=== PATIENT | male | born 1975 | race Caucasian/White ===

== ENCOUNTER → 2017-08-29 | Outpatient (CLI) | payer OTHER ==
--- NOTE | 2017-08-29 11:35 | Diagnostic Imaging Report ---
EXAMINATION: Three views of the left shoulder. INDICATION: Left shoulder pain. FINDINGS: No fracture, dislocation, or radiopaque foreign body. The alignment of the glenohumeral and acromioclavicular joints appear unremarkable. IMPRESSION: Unremarkable exam. Dictated by: Dictated on workstation # [id number]
== END ==
LOC: RAD 10:33
PROVIDERS: ATTEND Nurse Practitioner Family
DX: M25.512 Pain in left shoulder (principal)
CPT/HCPCS: 73030

== ENCOUNTER → 2019-03-03 | Outpatient (CLI) | payer OTHER ==
--- NOTE | 2019-03-03 20:02 | Diagnostic Imaging Report ---
INDICATION: Left knee pain 3 views of the left knee show no fracture, dislocation or other acute abnormalities. IMPRESSION: Negative left knee Dictated by: Dictated on workstation # [id number]
== END ==
LOC: RAD 19:40
PROVIDERS: ATTEND Nurse Practitioner Family
DX: M25.562 Pain in left knee (principal)
CPT/HCPCS: 73562

== ENCOUNTER → 2019-03-16 | Outpatient (CLI) | payer OTHER ==
--- NOTE | 2019-03-16 15:38 | Diagnostic Imaging Report ---
PROCEDURE: MRI left joint lower extremity without contrast. TECHNIQUE: Multiplanar, multisequence non contrast-enhanced MRI of the left lower extremity was accomplished. INDICATION: Left knee pain. FINDINGS: The anterior cruciate and posterior cruciate ligaments are intact. Both the superficial and deep components of the medial collateral ligament are intact. The distal insertion of the biceps femoris and fibular collateral is not included on this exam on the coronal images. They however appear to be intact. The iliotibial band is intact. The popliteus tendon is intact. There is an oblique tear of the posterior horn of medial meniscus extending to the inferior articular margin. Anterior horn of medial meniscus is intact. Lateral meniscus is normal in signal intensity and morphology. Quadriceps tendon and patellar tendons are intact. There is very small knee joint effusion. The articular cartilage is well maintained in all three knee joint compartments. IMPRESSION: Oblique tear of the posterior horn of medial meniscus extending to inferior articular margin. Small knee joint effusion. No other internal derangement of the knee. Dictated by: Dictated on workstation # [id number]
== END ==
LOC: RAD 14:22
PROVIDERS: ATTEND Nurse Practitioner Family
DX: M23.222 Derangement of posterior horn of medial meniscus due to old tear or injury, left knee (principal)
CPT/HCPCS: 73721

== ENCOUNTER → 2020-07-21 | Outpatient (CLI) | payer OTHER ==
[2020-07-21 10:37] LABS: BASOPHILS % (AUTO) 1 % (0-10); EOSINOPHILS # (AUTO) 0.1 10^3/uL (0.0-0.3); EOSINOPHILS % (AUTO) 1 % (0-10); HEMATOCRIT 48 % (40-54); HEMOGLOBIN 16.3 g/dL (13.3-17.7); LYMPHOCYTES # (AUTO) 2.3 10^3/uL (1.0-4.0); LYMPHOCYTES % (AUTO) 28 % (12-44); MEAN CORPUSCULAR HEMOGLOBIN 30 pg (25-34); MEAN CORPUSCULAR HGB CONC 34 g/dL (32-36); MEAN CORPUSCULAR VOLUME 87 fL (80-99); MEAN PLATELET VOLUME 10.4 fL (9.0-12.2); MONOCYTES # (AUTO) 0.6 10^3/uL (0.0-1.0); MONOCYTES % (AUTO) 7 % (0-12); NEUTROPHILS # (AUTO) 5.2 10^3/uL (1.8-7.8); NEUTROPHILS % (AUTO) 64 % (42-75); PLATELET COUNT 363 10^3/uL (130-400); WHITE BLOOD COUNT 8.1 10^3/uL (4.3-11.0)
[2020-07-21 11:06] LABS: ALANINE AMINOTRANSFERASE 28 U/L (0-55); ALBUMIN 4.7 GM/DL (3.2-4.5); ALKALINE PHOSPHATASE 80 U/L (40-136); BILIRUBIN,TOTAL 0.7 MG/DL (0.1-1.0); BUN/CREATININE RATIO 15; CALCIUM 9.7 MG/DL (8.5-10.1); CARBON DIOXIDE 27 MMOL/L (21-32); CHLORIDE 101 MMOL/L (98-107); CHOLESTEROL 235 MG/DL (< 200); CREATININE SERUM 1.04 MG/DL (0.60-1.30); GFR ESTIMATED > 60; GLUCOSE 118 MG/DL (70-105); HDL CHOLESTEROL 47 MG/DL (40-60); POTASSIUM 3.7 MMOL/L (3.6-5.0); SODIUM 139 MMOL/L (135-145); TRIGLYCERIDES 154 MG/DL (<150); VLDL CHOLESTEROL 31 MG/DL (5-40)
== END ==
LOC: LAB 10:18
PROVIDERS: ATTEND Nurse Practitioner Family
DX: Z00.00 Encounter for general adult medical examination without abnormal findings (principal); I10 Essential (primary) hypertension; E11.9 Type 2 diabetes mellitus without complications
CPT/HCPCS: 36415; 80053; 80061; 83036; 85025

== ENCOUNTER → 2020-09-26 | Outpatient (CLI) | payer OTHER | LOC: LABNPT 06:16 | PROVIDERS: ATTEND Family Medicine | DX: Z20.828 Contact with and (suspected) exposure to other viral communicable diseases (principal) | CPT/HCPCS: 87635 ==